=== PATIENT | female | born 1975 | race Hispanic/Latino ===

== ENCOUNTER 2019-03-01 09:09 | Emergency (ER) | payer BC ==
[2019-03-01 09:11] VITALS: BMI 20.9
[2019-03-01 11:51] LABS: BASO % 0.7 % (0.0-2.0); EOS % 0.5 % (0.0-4.0); HEMOGLOBIN 12.9 g/dL (12.0-16.0); LYMPH # 1.3 K/uL (1.0-4.3); LYMPH % 29.2 % (20.0-40.0); MEAN CELL VOLUME 91.8 fl (81.0-99.0); MEAN CORPUSCULAR HGB CONC 33.8 g/dL (33.0-37.0); MEAN PLATELET VOLUME 7.6 fl (7.2-11.7); MONO # 0.4 K/uL (0.0-0.8); MONO % 8.3 % (0.0-10.0); NEUT # 2.8 K/uL (1.8-7.0); NEUT % 61.3 % (50.0-75.0); NRBC % 0.1 % (0.0-0.0); RBC 4.17 Mil/uL (3.80-5.20); RED CELL DISTRIBUTION WIDTH 13.6 % (11.5-14.5); WHITE BLOOD COUNT 4.5 K/uL (4.8-10.8)
--- NOTE | 2019-03-01 11:51 | CARD ---
APPROVED REPORT Date of service: 03/01/2019 EKG Measurement Heart [id number] <Conclusion> Sinus bradycardia Otherwise normal ECG
[2019-03-01 12:05] LABS: BLOOD UREA NITROGEN 16 mg/dl (7-17); CALCIUM 9.1 mg/dL (8.4-10.2); GFR NON-AFRICAN AMERICAN > 60
[2019-03-01 12:07] LABS: SQUAMOUS EPITHIAL 5 /hpf (0-5); URINE AMORPHOUS SEDIMENT OCC /ul (<OCC); URINE BILIRUBIN NEGATIVE (NEGATIVE); URINE BLOOD NEGATIVE (NEGATIVE); URINE CLARITY CLOUDY (Clear); URINE COLOR YELLOW (YELLOW); URINE GLUCOSE (UA) NEG (NEGATIVE); URINE LEUKOCYTE ESTERASE NEG Leu/uL (Negative); URINE PROTEIN NEGATIVE (NEGATIVE); URINE UROBILINOGEN 0.2-1.0 mg/dL (0.2-1.0)
--- NOTE | 2019-03-01 12:37 | ED PDOC ---
Syncope/Near Syncope/Dizziness Time Seen by Provider: 03/01/19 09:56 Chief Complaint (Nursing): Dizziness/Lightheaded Chief Complaint (Provider): Dizziness/Lightheaded History Per: Patient History/Exam Limitations: no limitations Past Medical History Vital Signs: Last Vital Signs Temp 97.7 F 03/01/19 09:11 Pulse 53 L 03/01/19 09:11 Resp 16 03/01/19 09:11 BP 111/73 03/01/19 09:11 Pulse Ox 99 03/01/19 09:11 Primary Care Provider: FAMILY PROVIDER,NO - Medical History PMH: Anemia - Immunization History Hx Tetanus Toxoid Vaccination: No Hx Influenza Vaccination: No Hx Pneumococcal Vaccination: No - Home Medications Home Medications: Ambulatory Orders Medication Instructions Recorded Methylprednisolone [Medrol Dose 4 mg PO ASDIR #21 mg 03/01/19 Pack (21 tabs)] - Allergies Allergies/Adverse Reactions: Allergies Allergy/AdvReac Type Severity Reaction Status Date / Time No Known Allergies Allergy Verified 03/01/19 10:50 Review of Systems ROS Statement: Except As Marked, All Systems Reviewed And Found Negative Neurological: Positive for: Dizziness - Laboratory Results Result Diagrams: 03/01/19 11:20 03/01/19 11:20 Lab Results: Troponin I < 0.0120 ng/mL (0.00-0.120) 03/01/19 11:20 Urine Color Yellow (YELLOW) 03/01/19 11:20 Urine Clarity Cloudy (Clear) 03/01/19 11:20 Urine pH 8.0 (5.0-8.0) 03/01/19 11:20 Ur Specific [place] 1.021 (1.003-1.030) 03/01/19 11:20 Urine Protein Negative mg/dL (NEGATIVE) 03/01/19 11:20 Urine Glucose (UA) Neg mg/dL (NEGATIVE) 03/01/19 11:20 Urine Ketones Negative mg/dL (NEGATIVE) 03/01/19 11:20 Urine Blood Negative (NEGATIVE) 03/01/19 11:20 Urine Nitrate Negative (NEGATIVE) 03/01/19 11:20 Urine Bilirubin Negative (NEGATIVE) 03/01/19 11:20 Urine Urobilinogen 0.2-1.0 mg/dL (0.2-1.0) 03/01/19 11:20 Ur Leukocyte Esterase Neg Amanda/uL (Negative) 03/01/19 11:20 Urine RBC (Auto) 3 /hpf (0-3) 03/01/19 11:20 Urine Microscopic WBC 1 /hpf (0-5) 03/01/19 11:20 Ur Squamous Epith Cells 5 /hpf (0-5) 03/01/19 11:20 Amorphous Sediment Occ /ul (<OCC) H 03/01/19 11:20 - ECG O2 Sat by Pulse Oximetry: 99 - Progress Re-evaluation Time: 14:41 Condition: Re-examined, Improved Medical Decision Making Medical Decision Making: Time:7 Impression: Dizziness Plan: -CT HEAD -EKG -BMP -Troponin -ED urine -CBC -Antivert 50mg PO -Urinalysis 1333: FINDINGS: HEMORRHAGE: No intracranial hemorrhage. BRAIN: Normal mathur-white matter differentiation and density are appreciated throughout the cerebrum and cerebellum with the brainstem appearing unremarkable as well. There is no mass effect. There is no suspicious extra-axial fluid collection and the midline brain anatomy appears diffusely unremarkable. VENTRICLES: Unremarkable. No hydrocephalus. CALVARIUM: Unremarkable. PARANASAL SINUSES: Unremarkable as visualized. No significant inflammatory changes. MASTOID AIR CELLS: Unremarkable as visualized. No inflammatory changes. OTHER FINDINGS: None. IMPRESSION: Unremarkable unenhanced head CT. Scribe Attestation: Documented by Shruthi Pierre, acting as a scribe for Kristen Shearer. Provider Scribe Attestation: All medical record entries made by the Scribe were at my direction and personally dictated by me. I have reviewed the chart and agree that the record accurately reflects my personal performance of the history, physical exam, medical decision making, and the department course for this patient. I have also personally directed, reviewed, and agree with the discharge instructions and disposition. Disposition - Clinical Impression Clinical Impression: Dizziness - Patient ED Disposition Is Patient to be Admitted: No Doctor Will See Patient In The: Office Counseled Patient/Family Regarding: Studies Performed, Diagnosis, Need For Followup - Disposition Referrals: Nguyễn Denise MD [Medical Doctor] - Disposition: Routine/Home Disposition Time: 14:43 Condition: GOOD Additional Instructions: JAMILAH MARIE, thank you for letting us take care of you today. Your provider was Kristen Ortiz MD and you were treated for WEAKNESS, VOMITING. The emergency medical care you received today was directed at your acute symptoms. If you were prescribed any medication, please fill it and take as directed. It may take several days for your symptoms to resolve. Return to the Emergency Department if your symptoms worsen, do not improve, or if you have any other problems. Please contact your doctor or call one of the physicians/clinics you have been referred to that are listed on the Patient Visit Information form that is included in your discharge packet. Bring any paperwork you were given at discharge with you along with any medications you are taking to your follow up visit. Our treatment cannot replace ongoing medical care by a primary care provider outside of the emergency department. Thank you for allowing the [facility] team to be part of your care today. If you had an X-Ray or CT scan: A Radiologist will review the ED reading if any change in treatment is needed we will contact you. If you had a blood, urine, or wound culture: It will take several days for the results, if any change in treatment is needed we will contact you. Prescriptions: Methylprednisolone [Medrol Dose Pack (21 tabs)] 4 mg PO ASDIR #21 mg Instructions: Dizziness, Nonvertigo, (DC) Forms: [employer] ([place]in)
--- NOTE | 2019-03-01 13:36 | CT ---
Date of service: 03/01/2019 PROCEDURE: CT HEAD WITHOUT CONTRAST. HISTORY: dizziness COMPARISON: None available. TECHNIQUE: Axial computed tomography images were obtained through the head/brain without intravenous contrast. Radiation dose: Total exam DLP = 759.35 mGy-cm. This CT exam was performed using one or more of the following dose reduction techniques: Automated exposure control, adjustment of the mA and/or kV according to patient size, and/or use of iterative reconstruction technique. FINDINGS: HEMORRHAGE: No intracranial hemorrhage. BRAIN: Normal mathur-white matter differentiation and density are appreciated throughout the cerebrum and cerebellum with the brainstem appearing unremarkable as well. There is no mass effect. There is no suspicious extra-axial fluid collection and the midline brain anatomy appears diffusely unremarkable. VENTRICLES: Unremarkable. No hydrocephalus. CALVARIUM: Unremarkable. PARANASAL SINUSES: Unremarkable as visualized. No significant inflammatory changes. MASTOID AIR CELLS: Unremarkable as visualized. No inflammatory changes. OTHER FINDINGS: None. IMPRESSION: Unremarkable unenhanced head CT.
[2019-03-01 15:09] VITALS: BP 110/70; PULSE 66; RESP 17; TEMP 98.2
[2019-03-01 15:10] VITALS: O2SAT 100
== END 2019-03-01 15:00 | disposition home or self-care (01) ==
LOC: H.ER 09:09
DX: R42 Dizziness and giddiness (principal)